=== PATIENT | male | born 1960 | race African-American/Black ===

== ENCOUNTER 2018-08-07 22:51 | Emergency (ER) | payer BC ==
--- NOTE | 2018-08-08 00:10 | ER ---
Nurse's Notes [facility] Name: Chalo Sherman Age: 57 yrs Sex: Male : 1960 Arrival Date: 08/07/2018 Time: 22:55 Bed 5 Private MD: Vignesh Felder B Diagnosis: Inguinal hernia Presentation: 08/07 23:06 Presenting complaint: Patient states: he has a hernia and his scrotum started swelling bb at approx 1400/1500 today with abdominal pain. Transition of care: patient was not received from another setting of care. Onset of symptoms was August 07, 2018. Risk Assessment: Do you want to hurt yourself or someone else? Patient reports no desire to harm self or others. Initial Sepsis Screen: Does the patient meet any 2 criteria? No. Patient's initial sepsis screen is negative. Does the patient have a suspected source of infection? No. Patient's initial sepsis screen is negative. Care prior to arrival: None. 23:06 Method Of Arrival: Ambulatory bb 23:06 Acuity: NADER 3 bb Historical: - Allergies: 23:08 No Known Allergies; bb - Home Meds: 23:08 lisinopril 5 mg Oral tab 1 tab once daily [Active]; bb - PMHx: 23:08 Hypertension; bb - PSHx: 23:08 colonoscopy; bb - Immunization history:: Adult Immunizations up to date. - Social history:: Smoking status: Patient/guardian denies using tobacco. - Ebola Screening: : No symptoms or risks identified at this time. Screenin/01 00:19 Abuse screen: Denies threats or abuse. Nutritional screening: No deficits noted. tl2 Tuberculosis screening: No symptoms or risk factors identified. Fall Risk None identified. Assessment: 08/07 23:15 General: Appears in no apparent distress. uncomfortable, Behavior is calm, cooperative, tl2 appropriate for age. Pain: Complains of pain in right femoral area. Neuro: Level of Consciousness is awake, alert, obeys commands, Oriented to person, place, time, situation. Respiratory: Airway is patent Respiratory effort is even, unlabored, Respiratory pattern is regular, symmetrical. GI: Bowel sounds present X 4 quads. Abd is soft and non tender. : No signs and/or symptoms were reported regarding the genitourinary system. Derm: Skin is pink, warm \T\ dry. 08/08 00:21 Reassessment: Patient appears in no apparent distress at this time. Patient and/or tl2 family updated on plan of care and expected duration. Pain level reassessed. Patient is alert, oriented x 3, equal unlabored respirations, skin warm/dry/pink. pt verbalized understanding of discharge instructions and to follow up with Dr. Gustafson in his office at 1300 tomorrow. Vital Signs: 08/07 23:08 BP 162 / 93; Pulse 78; Resp 16 S; Temp 98.1(O); Pulse Ox 99% on R/A; Weight 86.18 kg bb (R); Height 5 ft. 10 in. (177.80 cm) (R); Pain 7/10; 08/08 00:20 BP 152 / 90; Pulse 75; Resp 18; Pulse Ox 99% on R/A; tl2 08/07 23:08 Body Mass Index 27.26 (86.18 kg, 177.80 cm) ED Course: 08/07 22:55 Patient arrived in ED. am2 22:57 Vignesh Felder MD is Private Physician. am2 23:00 Keanu Olson MD is Attending Physician. gs 23:07 Triage completed. 23:08 Arm band placed on Patient placed in an exam room, on a stretcher, on pulse oximetry. Family accompanied patient. 23:10 Yandy Franco RN is Primary Nurse. tl2 23:20 Patient has correct armband on for positive identification. Bed in low position. Call tl2 light in reach. Side rails up X 1. 23:20 No provider procedures requiring assistance completed. Patient did not have IV access tl2 during this emergency room visit. 08/08 00:07 Satya Gustafson MD is Referral Physician. Administered Medications: No medications were administered Outcome: 00:07 Discharge ordered by . gs 00:21 Discharged to home via wheelchair, with family. tl2 00:21 Condition: stable 00:21 Discharge instructions given to patient, Instructed on discharge instructions, follow up and referral plans. Demonstrated understanding of instructions, follow-up care. 00:22 Patient left the ED. tl2 Signatures: Korina Jim RN RN Yandy Franco RN RN tl2 Sheila Kinney am2 Keanu Oslon MD MD Corrections: (The following items were deleted from the chart) 00:19 06 23:15 General: Appears in no apparent distress. uncomfortable, Behavior is calm, tl2 cooperative, appropriate for age, tl2 08/08 00:20 00:18 General: Appears in no apparent distress. uncomfortable, Behavior is calm, tl2 cooperative, appropriate for age, tl2 00: 00:18 Pain: Complains of pain in right femoral area tl2 tl2 00: 00:18 Neuro: Level of Consciousness is awake, alert, obeys commands, Oriented to tl2 person, place, time, situation, tl2 00: 00:18 Respiratory: Airway is patent Respiratory effort is even, unlabored, Respiratory tl2 pattern is regular, symmetrical, tl2 : 00:18 GI: Bowel sounds present X 4 quads. Abd is soft and non tender tl2 tl2 00: 00:18 : No signs and/or symptoms were reported regarding the genitourinary system. tl2tl2 00: 00:18 Derm: Skin is pink, warm \T\ dry. tl2 tl2
--- NOTE | 2018-08-08 00:11 | EDPHYS ---
Physician Documentation [facility] Name: Chalo Sherman Age: 57 yrs Sex: Male : 1960 Arrival Date: 08/07/2018 Time: 22:55 Bed 5 Private MD: Vignesh Felder B ED Physician Keanu Olson HPI: 08/07 23:56 This 57 yrs old Black Male presents to ER via Ambulatory with complaints of swelling in gs groin. 23:56 The patient presents with swelling, that is moderate, of the right inguinal area. gs Onset: The symptoms/episode began/occurred 1 year(s) ago. Modifying factors: The symptoms are alleviated by nothing, the symptoms are aggravated by nothing. Associated signs and symptoms: Pertinent negatives: abdominal pain, vomiting. Severity of symptoms: At their worst the symptoms were severe, in the emergency department the symptoms are unchanged. The patient has experienced similar episodes in the past, chronically. The patient has not recently seen a physician. Historical: - Allergies: 23:08 No Known Allergies; bb - Home Meds: 23:08 lisinopril 5 mg Oral tab 1 tab once daily [Active]; bb - PMHx: 23:08 Hypertension; bb - PSHx: 23:08 colonoscopy; bb - Immunization history:: Adult Immunizations up to date. - Social history:: Smoking status: Patient/guardian denies using tobacco. - Ebola Screening: : No symptoms or risks identified at this time. ROS: 08/08 00:03 Abdomen/GI: Positive for gerd symptoms, no vomiting. gs All other systems are negative. Exam: 00:03 Head/Face: Normocephalic, atraumatic. Eyes: Pupils equal round and reactive to light, gs extra-ocular motions intact. Lids and lashes normal. Conjunctiva and sclera are non-icteric and not injected. Cornea within normal limits. Periorbital areas with no swelling, redness, or edema. ENT: Nares patent. No nasal discharge, no septal abnormalities noted. Tympanic membranes are normal and external auditory canals are clear. Oropharynx with no redness, swelling, or masses, exudates, or evidence of obstruction, uvula midline. Mucous membranes moist. Neck: Trachea midline, no thyromegaly or masses palpated, and no cervical lymphadenopathy. Supple, full range of motion without nuchal rigidity, or vertebral point tenderness. No Meningismus. Chest/axilla: Normal chest wall appearance and motion. Nontender with no deformity. No lesions are appreciated. Cardiovascular: Regular rate and rhythm with a normal S1 and S2. No gallops, murmurs, or rubs. Normal PMI, no JVD. No pulse deficits. Respiratory: Lungs have equal breath sounds bilaterally, clear to auscultation and percussion. No rales, rhonchi or wheezes noted. No increased work of breathing, no retractions or nasal flaring. Skin: Warm, dry with normal turgor. Normal color with no rashes, no lesions, and no evidence of cellulitis. MS/ Extremity: Pulses equal, no cyanosis. Neurovascular intact. Full, normal range of motion. Neuro: Awake and alert, GCS 15, oriented to person, place, time, and situation. Cranial nerves II-XII grossly intact. Motor strength 5/5 in all extremities. Sensory grossly intact. Cerebellar exam normal. Normal gait. 00:03 Constitutional: The patient appears alert, awake. 00:03 Abdomen/GI: Inspection: distension, is not seen, Bowel sounds: normal, Palpation: abdomen is soft and non-tender, in all quadrants, Hernia: noted in the right femoral area, incarceration, that is moderate, able to reduce about 50 %. Vital Signs: 08/07 23:08 BP 162 / 93; Pulse 78; Resp 16 S; Temp 98.1(O); Pulse Ox 99% on R/A; Weight 86.18 kg bb (R); Height 5 ft. 10 in. (177.80 cm) (R); Pain 7/10; 08/08 00:20 BP 152 / 90; Pulse 75; Resp 18; Pulse Ox 99% on R/A; tl2 08/07 23:08 Body Mass Index 27.26 (86.18 kg, 177.80 cm) bb MDM: 08/07 23:49 Patient medically screened. gs 08/08 00:03 Differential diagnosis: nonspecific abdominal pain, hernia,sbo. Data reviewed: vital gs signs, nurses notes. Physician consultation: Satya James MD and will see patient in office, later today, ok with partial reduction in light of no obstructive signs ie no vomiting, abdomen pain, distention,no abdominal tenderness. Administered Medications: No medications were administered Disposition: 08/08/18 00:07 Discharged to Home. Impression: Inguinal hernia. - Condition is Stable. - Discharge Instructions: Hernia, Adult, Apph-lw-Gliz. - Prescriptions for Pepcid 20 mg Oral Tablet - take 1 tablet by ORAL route once daily; 20 tablet. - Work release form, Medication Reconciliation Form, Thank You Letter, Antibiotic Education, Prescription Opioid Use form. - Follow up: Satya James MD; When: 2 - 3 days; Reason: Re-evaluation by your physician. - Notes: DR JAMES WILL SEE YOU TODAY AT 1PM Signatures: Korina Jim, RN RN bb Yandy Franco RN RN tl2 Keanu Olson MD MD gs Corrections: (The following items were deleted from the chart) 00:22 00:07 08/08/2018 00:07 Discharged to Home. Impression: Inguinal hernia. Condition is tl2 Stable. Forms are Medication Reconciliation Form, Thank You Letter, Antibiotic Education, Prescription Opioid Use. Follow up: Satya James; When: 2 - 3 days; Reason: Re-evaluation by your physician. gs
== END 2018-08-08 00:22 | disposition home or self-care (01) ==
LOC: ER 22:51
DX: K40.90 Unilateral inguinal hernia, without obstruction or gangrene, not specified as recurrent (principal); I10 Essential (primary) hypertension
CPT/HCPCS: 99283

== ENCOUNTER 2018-08-10 08:50 | Day surgery (SDC) | payer BC ==
[2018-08-09 18:07] LABS: Absolute Lymphocytes (CBC) 1.6 K/uL (0.7-4.9); Basophils % 0.7 % (0-1.3); Eosinophils % 5.7 % (0-4.4); Hematocrit 42.1 % (39.6-49.0); MPV 9.1 fL (7.6-11.3); Monocytes % 15.5 % (3.3-12.3); RBC Red Blood Cell Count 4.61 M/uL (4.33-5.43)
[2018-08-09 18:22] LABS: Potassium 3.9 mmol/L (3.5-5.1)
--- NOTE | 2018-08-09 18:54 | RAD REPORT ---
EXAM DESCRIPTION: RAD - Chest Pa And Lat (2 Views) - 08/09/2018 6:08 pm CLINICAL HISTORY: Preop chest, right groin hernia repair COMPARISON: None. TECHNIQUE: PA and lateral views of the chest were obtained. FINDINGS: The lungs are clear. Heart size is normal and central vasculature is within normal limit s. No pleural effusion or pneumothorax seen. No acute bony finding noted. No aortic abnormality. IMPRESSION: No acute cardiopulmonary process.
[2018-08-09 21:20] LABS: Blood Morphology Comment NOT SEEN (NOT SEEN); Platelet Estimate ADEQ; Urine White Blood Cell Casts OK
--- NOTE | 2018-08-10 06:54 | EKG ---
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
[2018-08-10] MEDS ORDERED: Ringers Lactate 1,000 ML IV ONE ×2 (09:21→10:51)
[2018-08-10] MEDS ORDERED: CEFAZOLIN/SWI 1gm 1 GM/10 ML SYR ONE (09:26)
[2018-08-10] MEDS ORDERED: PROPOFOL 200 MG/20 ML VIAL IV ONE ×2 (10:33→12:26)
[2018-08-10] MEDS ORDERED: FENTANYL CITR 100 MCG/2 ML ONE (10:34)
[2018-08-10] MEDS ORDERED: GLYCOPYRROLATE 0.2 MG/ML SYR ONE (10:35)
[2018-08-10] MEDS ORDERED: LIDOCAINE 2% MPF 5 ML VIAL ONE (10:36)
[2018-08-10] MEDS ORDERED: ONDANSETRON 4 MG/2 ML VIAL ONE (10:38)
[2018-08-10] MEDS ORDERED: ROCURONIUM 50 MG/5 ML VIAL IV ONE (10:39)
[2018-08-10] MEDS ORDERED: MIDAZOLAM HCL 2 MG/2 ML INJ ONE (10:52)
--- NOTE | 2018-08-10 12:09 | P.BOP ---
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
[2018-08-10] MEDS ORDERED: NEOSTIGMINE 1 MG/ML -10 ML VIAL ONE (12:26)
--- NOTE | 2018-08-13 01:17 | OP ---
Date of Procedure: 08/10/2018 Surgeon: Satya Gustafson MD Preoperative Diagnosis: Large incarcerated right inguinal hernia. Postoperative Diagnosis: Large incarcerated right inguinal hernia. Procedure: Open repair of a large incarcerated right inguinal hernia with mesh. Estimated Blood Loss: Less than 10 cc. Anesthesia: General plus local. Indications: This is the case of a male, who comes to us with a large right inguinal hernia. The be nefits, alternatives and risks of laparoscopic, possible open repair fully explained to the patient, which include but are not limited to infection, bleeding, damage to adjacent structures, anesthesia c omplication, chronic pain, chronic numbness, AR, even . He also understands there is a chance f or testicular damage. Also understands this may not relieve any symptoms, he might need more than on e surgical intervention. He understands I will be using mesh in that area. Pros and cons of mesh pl acement were discussed with him in details and he was allowed to ask questions and they were answered to his satisfaction. He signed a consent. The area of concern was marked by me and the patient in the holding room. Description Of Procedure: The patient was brought to the operating room, placed in supine position. Anesthesia was done without complication. Abdominal area and genitalia were prepped and draped in a sterile fashion. The patient wanted me to try this laparoscopic first. We made an incision in the infraumbilical region. We find anterior rectus sheath was opened in the right side. We placed a spa ce-maker device over the area and inflated the balloon but once we put the camera in, we noticed that the patient has a large amount of tissue over the right inguinal region incarcerated into the area o f concern and it would not be able to be reduced until we do this directly. So, we proceeded to this in an open technique. The case necessitated for that way. So, we deflated the balloon and removed the catheters. No bleeding. At that moment, I proceeded to make an incision in the right inguinal r egion. Incision was carried down to fascia. The Avinash's fascia was opened until we found external oblique aponeurosis. That was opened in the direction of its fiber. Ilioinguinal nerve, iliohypogas tric nerve were identified protected behind external oblique aponeurosis. The spermatic cord was enc losed around with a Gilles. We noticed that direct defect present. When we opened the hernia sac, we noticed the patient to have his incarcerated omentum that was carefully reduced back into the abdo mendez cavity. Hernia sac was ligated. Mesh plug was placed over the area. Large plug, secured in p lace with VersaTack. Then a mesh sheet was placed on the floor of the canal secured in place to the pubic tubercle, shelving edge of the inguinal ligament and transversalis fascia, and the tail looped around the spermatic cord without strangulation. The area was irrigated. No bleeding. At that mome nt, I once again palpated the spermatic cord structure that looked intact. At that moment, I proceed ed to put the ilioinguinal nerve, iliohypogastric nerve back into the abdominal cavity. Reconstructe d the superficial inguinal ring and closed the external oblique aponeurosis without involving the ner ve. The area was irrigated. Avinash fascia closed with 3-0 chromic and skin with jason. Sponge co unt, instrument counts were correct. The patient tolerated the procedure well. The patient was sent to recovery room in stable condition. At the end of the case, the testicles were within the scrotum . ROMI/SHAHNAZ Voice ID: [id number] Report ID: [id number]
--- NOTE | 2018-08-13 01:47 | DS ---
Date of Discharge: 08/10/2018 Diagnosis: Large incarcerated right inguinal hernia. Procedures: Open repair of a large incarcerated right inguinal hernia. Disposition: Home. Activity: As tolerated. No heavy lifting. Followup: Follow up in my office in 1 week. Call for appointment [phone]. Keep area dry for 48 ho urs, then may shower. Cold compresses to the right inguinal region for the next 24 hours. Medications: See orders. ROMI/SHAHNAZ Voice ID: [id number] Report ID: [id number]
== END 2018-08-10 14:20 | disposition home or self-care (01) ==
LOC: OR 08:50
PROVIDERS: ATTEND Surgery
PROC: 0YU50JZ Supplement Right Inguinal Region with Synthetic Substitute, Open Approach (ICD-10-PCS; principal; 2018-08-10 11:15)
DX: K40.30 Unilateral inguinal hernia, with obstruction, without gangrene, not specified as recurrent (principal); I10 Essential (primary) hypertension; G47.33 Obstructive sleep apnea (adult) (pediatric); Z01.812 Encounter for preprocedural laboratory examination; Z80.3 Family history of malignant neoplasm of breast; Z80.0 Family history of malignant neoplasm of digestive organs; Z80.42 Family history of malignant neoplasm of prostate
CPT/HCPCS: 36415; 71046; 80048; 85025; 88302; 93005; J0690; J2250; J2405; J2704; J2710; J3010